=== PATIENT | male | born 1975 | race Caucasian/White ===

== ENCOUNTER 2022-10-26 00:10 | Emergency (ER) | payer SELFPAY ==
[~2022-10-26] VITALS: Ht 182.9 cm; Wt 64.6 kg
[2022-10-26 00:24] VITALS: BP 117/70
== END 2022-10-26 01:38 | disposition left against medical advice (07) ==
LOC: ER 00:13
DX: G43.909 Migraine, unspecified, not intractable, without status migrainosus (principal); Z53.21 Procedure and treatment not carried out due to patient leaving prior to being seen by health care provider
CPT/HCPCS: 99281